=== PATIENT | male | born 1970 | race Caucasian/White ===

== ENCOUNTER 2019-07-01 10:22 | Day surgery (SDC) | payer BC ==
[2019-06-22 12:46] VITALS: BMI 27.4
[2019-07-01] MEDS ORDERED: LIDOCAINE HCL 2% (20ML MULTI-DOSE VIAL) NR ONE (12:35)
[2019-07-01] MEDS ORDERED: DEXAMETHASONE SOD PHOSPHATE 4 MG/1 ML VIAL ONE (13:21)
[2019-07-01] MEDS ORDERED: ONDANSETRON 4 MG/2 ML VIAL ONE (13:22)
[2019-07-01] MEDS ORDERED: MIDAZOLAM HCL 2 MG/2 ML SINGLE DOSE VIAL ONE (13:22)
[2019-07-01] MEDS ORDERED: PROPOFOL 20 ML ONE (13:33)
[2019-07-01] MEDS ORDERED: SUCCINYLCHOLINE CHLORIDE 200 MG/10 ML SYRINGE ONE (13:33)
[2019-07-01] MEDS ORDERED: LIDOCAINE HCL 2% (50ML VIAL) INF ONE (13:40)
[2019-07-01 14:28] VITALS: TEMP 97.7
[2019-07-01 14:48] VITALS: BP 106/71; PULSE 72
[2019-07-01] MEDS ORDERED: ONDANSETRON 4 MG/2 ML VIAL IVPUSH PRN (15:05)
[2019-07-01] MEDS ORDERED: oxyCODONE HCL 5 MG TABLET PO PRN ×2 (15:05)
[2019-07-01] MEDS ORDERED: LACTATED RINGERS SOLUTION 1,000 ML IV SCH (15:15)
--- NOTE | 2019-07-05 14:04 | OP ---
DATE OF OPERATION: 07/01/2019 PREOPERATIVE DIAGNOSES: 1. Left carpal tunnel syndrome. 2. Left long trigger finger. POSTOPERATIVE DIAGNOSES: 1. Left carpal tunnel syndrome. 2. Left long trigger finger. OPERATIVE PROCEDURE: 1. Left carpal tunnel release. 2. Left long trigger finger release. SURGEON: Tristin Torres MD ANESTHESIA: Local with sedation. COMPLICATIONS: None. ESTIMATED BLOOD LOSS: Minimal. INDICATION FOR PROCEDURE: The patient is a 48-year-old male with the above finding, indicated for operative treatment. Risks, benefits, alternatives were discussed with the patient at length. Proper informed consent was obtained. PROCEDURE: After proper identification of the patient and correct operative site, the patient was brought to the operating room and placed supine on the table with prominences well-padded. Sedation and local anesthesia were given and the left upper extremity was prepped and draped in the usual sterile fashion. A well-padded tourniquet was placed over the sterile prep, Esmarch bandage to exsanguinate the left upper extremity, tourniquet inflated to 250 mmHg. A longitudinal incision made in the proximal aspect of the palm. Incision was taken sharply through the skin with blunt and sharp dissection to the subcutaneous tissues. Palmar fascia was divided longitudinally, transverse carpal ligament divided longitudinally, along with the distal 4 cm of antebrachial fascia under direct visualization with Loupe magnification. This provided complete release of the median nerve at the wrist. The wound was repaired with 5-0 fast-absorbing plain gut suture. A 2nd incision was made over the A1 andree of the long finger. Incision was taken sharply through the skin with blunt and sharp dissection of the subcutaneous tissues. A1 andree was identified and divided. The patient was asked to flex and extend the finger and no further triggering was noted. The wound was repaired with 5-0 fast-absorbing plain gut suture. Sterile dressings were applied. The patient was brought to the recovery room in stable condition. He tolerated the procedure well. TRISTIN TORRES M.D. [id number]
== END 2019-07-01 15:11 | disposition home or self-care (01) ==
LOC: FASU 10:22 → EDSEX 13:00 → FASU 15:11
PROVIDERS: ATTEND Orthopaedic Surgery Hand Surgery
PROC: 01N50ZZ Release Median Nerve, Open Approach (ICD-10-PCS; principal; 2019-07-01 12:00)
PROC: 0LN80ZZ Release Left Hand Tendon, Open Approach (ICD-10-PCS; 2019-07-01 12:00)
DX: G56.02 Carpal tunnel syndrome, left upper limb (principal); M65.332 Trigger finger, left middle finger